=== PATIENT | female | born 1990 | race Caucasian/White ===

== ENCOUNTER 2017-05-04 14:59 | Emergency (ER) | payer MEDICAID ==
[~2017-05-04] VITALS: Ht 160 cm; Wt 64.9 kg
[~2017-05-04 14:59] MED LIST: AMOXIL500 MG PO; CEFDINIR300 MG PO; CEPHALEXIN500 MG PO; CIPRO 500MG TA500 MG PO; DARVOCET-N 1001 EACH PO; ERRIN0.35 MG PO; FAMILY PHARMAC325 MG PO; FLEXERIL10 MG PO; FOLIC ACID 1MG T1 MG PO; HYDROCODONE1 TABLET PO; IBU-8800 MG PO; IBUPROFEN200 MG PO; IRON TABLETS325 MG PO; KEFLEX 500MG.500 MG PO; LABETALOL 100M100 MG PO; LINZESS145 MCG PO; LORTAB 5/500 501 TAB PO; MACROBID 100MG100 MG PO; MEDROL 4MG. DOSE4 MG PO; MIRALAX17 GM/PACK PO; MOTRIN 400MG.400 MG PO; MOTRIN400 MG PO; Mobic7.5 MG PO; NAPROSYN 500MG500 MG PO; PERCOCET 5/3251 EACH PO; PHARMASSURE FO0.4 MG PO; PHENERGAN 25MG.25 M1 PO; PRENATAL PLUS1 TA1 PO; PRENATAL1 TA1 PO; PYRIDIUM 200MG200 MG PO; SULFAMETHOXAZOL1 TA6 PO; TRAMADOL PO; TYLENOL WITH CO1 TA1 PO; ULTRACET 325 MG1 TAB PO; ULTRAM 50 MG TA50 MG PO; VOLTAREN75 MG PO; ZANTAC 150150 MG PO; ZITHROMAX Z-PA250 M1 PO
[2017-05-04] MEDS ORDERED: CITALOPRAM HYDR10 MG PO (15:08)
[2017-05-04 15:22] LABS: URINE BLOOD NEGATIVE (NEG)
[2017-05-04 15:33] LABS: HEMOGLOBIN 11.6 g/dL (12.2-16.2); LYMPH # 2.2 K/mm3 (0.7-4.5); LYMPH % 15.8 % (10-50.0)
[2017-05-04 15:52] LABS: URINE BILIRUBIN - DIPSTICK 1+ (NEG)
[2017-05-04 15:55] LABS: URINE SQUAMOUS CELLS TNTC #/hpf (0-5)
[2017-05-04 15:59] LABS: BUN 9 mg/dL (7-18)
[2017-05-04 16:00] LABS: GFR (ESTIMATED) 148 ML/MIN (59-)
--- OUTSIDE RECORDS SUMMARY | 2017-05-04 16:15 | External Medical Summary Rpt ---
Author Author , Organization [employer] Address Unknown Phone Unavailable Purpose Continuity of Care Document - 04-11-2017 through 2016 Results Labs Lab Lab Date Result Refere Interp Status Commen Order Detail nces retati t Range on Blood group antibody screen [Presence] in Serum or Plasma (04-11-2017 14:16) Blood NEGATIV NEGATIV complet group 017 E E ed antibod 14:16 y screen [Presen ce] in Serum or Plasma Rh [Type] in Blood (04-11-2017 14:16) Rh POSITIV complet [Type] 017 E ed in 14:16 Blood ABO group [Type] in Blood (04-11-2017 14:16) ABO A complet group 017 ed [Type] 14:16 in Blood
--- OUTSIDE RECORDS SUMMARY | 2017-05-04 16:15 | External Medical Summary Rpt ---
Author Author [employer] Organization [employer] Address Unknown Phone Unavailable Purpose Continuity of Care Document - through 2016
--- OUTSIDE RECORDS SUMMARY | 2017-05-04 16:16 | External Medical Summary Rpt ---
Demographics Preferred Language Nigerian Marital Status Unknown Gnosticism Affiliation Unknown Race Unknown Ethnic Group Unknown Author Author , Organization [employer] Address Unknown Phone Unavailable Purpose Continuity of Care Document - through 2016 Immunization No patient found.
--- OUTSIDE RECORDS SUMMARY | 2017-05-04 16:16 | External Medical Summary Rpt ---
Author Author [employer], [employer] Organization [employer] Address Unknown Phone Unavailable Results CBC W Auto Differential panel in Blood Observa Value Referen Units Interpr Notes Date tion ce etation Range Basophils 0 - 0.2 K/MM3 Normal No May 04 informati 2016 3:20 [#/volume on in PM ] in source Blood by data Automated count Basophils 0.1 - 2.0 % Normal No May 04 / informati 2016 3:20 leukocyte on in PM s in source Blood by data Automated count Eosinophi 0.0 - 0.4 K/mm3 Normal No May 04 ls informati 2016 3:20 [#/volume on in PM ] in source Blood by data Automated count Eosinophi 0.1 - % Normal No May 04 ls/100 12.0 informati 2016 3:20 leukocyte on in PM s in source Blood by data Automated count Granulocy 1.8 - 7.8 K/mm3 High No May 04 beck informati 2016 3:20 [#/volume on in PM ] in source Blood by data Automated count Granulocy 37.0 - % Normal No May 04 beck/100 80.0 informati 2016 3:20 leukocyte on in PM s in source Blood by data Automated count Hematocri 37.0 - % Low No May 04 t [Volume 47.0 informati 2016 3:20 on in PM Fraction] source of Blood data Hemoglobi 12.2 - g/dL Low No May 04 n 16.2 informati 2016 3:20 [Mass/vol on in PM ume] in source Blood data Lymphocyt 0.7 - 4.5 K/mm3 Normal No May 04 es informati 2016 3:20 [#/volume on in PM ] in source Unspecifi data ed specimen by Automated count Lymphocyt 10 - 50.0 % Normal No May 04 es informati 2016 3:20 [#/volume on in PM ] in source Unspecifi data ed specimen by Automated count Erythrocy 27 - 31.2 pg High No May 04 te mean informati 2016 3:20 corpuscul on in PM ar source hemoglobi data n [Entitic mass] Erythrocy 31.8 - g/dl Normal No May 04 te mean 35.4 informati 2016 3:20 corpuscul on in PM ar source hemoglobi data n concentra tion [Mass/vol ume] by Automated count Erythrocy 82.2 - fl Normal No May 04 te mean 97.8 informati 2016 3:20 corpuscul on in PM ar volume source [Entitic data volume] by Automated count Monocytes 0.1 - 1.0 K/mm3 Normal No May 04 informati 2016 3:20 [#/volume on in PM ] in source Blood by data Automated count Monocytes 1.7 - 9.3 % Normal No May 04 /100 informati 2016 3:20 leukocyte on in PM s in source Blood by data Automated count Platelet 7.4 - fl Normal No May 04 mean 10.4 informati 2016 3:20 volume on in PM [Entitic source volume] data in Blood by Automated count Platelets 142 - 424 K/mm3 Normal No May 04 informati 2016 3:20 [#/volume on in PM ] in source Blood data Erythrocy 4.2 - 5.4 M/mm3 Low No May 04 beck informati 2016 3:20 [#/volume on in PM ] in source Amniotic data fluid Erythrocy 11.5 - % Normal No May 04 te 17.5 informati 2016 3:20 distribut on in PM ion width source [Entitic data volume] by Automated count Leukocyte 4.8 - K/MM3 High No May 04 s 10.8 informati 2016 3:20 [#/volume on in PM ] in source Blood data HBsAg Screen Observa Value Referen Units Interpr Notes Date tion ce etation Range Hepatit Negativ Negativ No No Perform Apr 11 is B e e informa informa ed at: 2017 virus tion in tion in CB - 2:16 PM surface source source [facility] Ag data data [Presen 6 ce] in 370 Serum Gutiérrez by [facility], [facility] [id number] 69Lab Directo r: Lev de la rosa PhD, Phone: [phone] Reagin Ab [Titer] in Serum by RPR Observa Value Referen Units Interpr Notes Date tion ce etation Range Reagin Ab NonRea<1: No No No Adam 12 [Titer] 1 informati informati informati 2016 2:16 in Serum on in on in on in PM by RPR source source source data data data Rubella virus IgG Ab [Units/volume] in Serum by Immunoassay Observa Value Referen Units Interpr Notes Date tion ce etation Range Rubella Immune index No Non-immun Mar 12 virus IgG >0.99 informati e 2016 2:16 Ab on in <0.90Equi PM [Units/vo source vocal lume] in data 0.90 - Serum by 0.99Immun Immunoass e ay >0.99 Blood group antibody screen [Presence] in Serum or Plasma Observa Value Referen Units Interpr Notes Date ti ce etation Range Blood NEGATIV NEGATIV No No No Apr 11 group E E informa informa informa 2016 antibod tion in tion in tion in 2:16 PM y source source source screen data data data [Presen ce] in Serum or Plasma Rh [Type] in Blood Observa Value Referen Units Interpr Notes Date ti ce etation Range Rh POSITIV No No No No Apr 11 [Type] E informa informa informa informa 2016 in tion in tion in tion in tion in 2:16 PM Blood source source source source data data data data ABO group [Type] in Blood Observa Value Referen Units Interpr Notes ce etation Range ABO A No No No No Apr 11 group informa informa informa informa 2016 [Type] tion in tion in tion in tion in 2:16 PM in source source source source Blood data data data data CBC W Auto Differential panel in Blood Observa Value Referen Units Interpr Notes Date tion ce etation Range Basophils 0 - 0.2 K/MM3 Normal No Apr 11 informati 2016 2:16 [#/volume on in PM ] in source Blood by data Automated count Basophils 0.1 - 2.0 % Normal No Mar 12 / informati 2016 2:16 leukocyte on in PM s in source Blood by data Automated count Eosinophi 0.0 - 0.4 K/mm3 Normal No Apr 11 ls informati 2016 2:16 [#/volume on in PM ] in source Blood by data Automated count Eosinophi 0.1 - % Normal No Apr 11 ls/100 12.0 informati 2017 2:16 leukocyte on in PM s in source Blood by data Automated count Granulocy 1.8 - 7.8 K/mm3 High No Mar 12 beck informati 2017 2:16 [#/volume on in PM ] in source Blood by data Automated count Granulocy 37.0 - % Normal No Mar 12 beck/100 80.0 informati 2016 2:16 leukocyte on in PM s in source Blood by data Automated count Hematocri 37.0 - % Normal No Apr 11 t [Volume 47.0 informati 2016 2:16 on in PM Fraction] source of Blood data Hemoglobi 12.2 - g/dL Normal No Mar 12 n 16.2 informati 2017 2:16 [Mass/vol on in PM ume] in source Blood data Lymphocyt 0.7 - 4.5 K/mm3 Normal No Apr 11 es informati 2016 2:16 [#/volume on in PM ] in source Unspecifi data ed specimen by Automated count Lymphocyt 10 - 50.0 % Normal No Apr 11 es informati 2016 2:16 [#/volume on in PM ] in source Unspecifi data ed specimen by Automated count Erythrocy 27 - 31.2 pg High No Mar 12 te mean informati 2017 2:16 corpuscul on in PM ar source hemoglobi data n [Entitic mass] Erythrocy 31.8 - g/dl Normal No Apr 11 te mean 35.4 informati 2016 2:16 corpuscul on in PM ar source hemoglobi data n concentra tion [Mass/vol ume] by Automated count Erythrocy 82.2 - fl Normal No Apr 11 te mean 97.8 informati 2016 2:16 corpuscul on in PM ar volume source [Entitic data volume] by Automated count Monocytes 0.1 - 1.0 K/mm3 Normal No Mar 12 informati 2017 2:16 [#/volume on in PM ] in source Blood by data Automated count Monocytes 1.7 - 9.3 % Normal No Adam 12 /100 informati 2017 2:16 leukocyte on in PM s in source Blood by data Automated count Platelet 7.4 - fl Low No Mar 12 mean 10.4 informati 2016 2:16 volume on in PM [Entitic source volume] data in Blood by Automated count Platelets 142 - 424 K/mm3 No No Mar 12 informati informati 2016 2:16 [#/volume on in on in PM ] in source source Blood data data Erythrocy 4.2 - 5.4 M/mm3 Low No Mar 12 beck informati 2017 2:16 [#/volume on in PM ] in source Amniotic data fluid Erythrocy 11.5 - % Normal No Mar 12 te 17.5 informati 2017 2:16 distribut on in PM ion width source [Entitic data volume] by Automated count Leukocyte 4.8 - K/MM3 High No Mar 12 s 10.8 informati 2017 2:16 [#/volume on in PM ] in source Blood data
--- OUTSIDE RECORDS SUMMARY | 2017-05-04 16:16 | External Medical Summary Rpt ---
Demographics Preferred Language Bulgarian Marital Status Unknown Roman Catholic Affiliation Unknown Race Unknown Ethnic Group Unknown Author Author , Organization [employer] Address Unknown Phone Unavailable Purpose Continuity of Care Document - through 2016 Immunization No patient found.
--- OUTSIDE RECORDS SUMMARY | 2017-05-04 16:16 | External Medical Summary Rpt ---
[...] 6 ce] in 370 Serum Gutiérrez by [facility], [facility] [id number] 69Lab Directo r: Lev de la rosa PhD, Phone: [phone] Reagin Ab [Titer] in Serum by [...]
--- NOTE | 2017-05-04 18:29 | Emergency Room Report ---
History of Present Illness Time Seen by [id number] Presenting Problem in Triage Pt arrived:Walked Presenting Problem:PAIN UNDER HER LEFT BREAST AND CENTER OF HER CHEST. STATES THE PAIN IS SHARP AND QUICK. SHE ALSO HAS PAIN IN HER LEFT SIDE AND BACK THAT IS CONSTANT. SHE IS 28 WEEKS AND WAS TREATED FOR A BLADDER INFECTION LAST WEEK. Onset of symptoms date/time:/ or onset unknown for:MEDICAL HX UNKNOWN Treatment Prior to Arrival: [employer] Provided by: Sepsis Risk Assessment: Temp: 98.7 B/P: 134/84 MAP: 81 Pulse: 111 Resp: 18 Recent fever? N Clinical Suspician of Infection? N Mental Status: 1 - Regular (Normal Baseline) Sepsis Risk:Possible Sepsis Risk Have you (or family members/close friends) recently traveled outside the [place]? N If Yes, where/when: Have you had exposure to infectious disease within the past month? TB? Other? Specify: Comment The patient states that she is here to be evaluated for chest pain. She is 28 weeks' gestation . She says that she called Dr. Jimenez today to tell him about contractions that she was having that she thought might be [place] contractions and also about chest pain that she has been having. She says that he told her to come to the emergency room first to have the chest pain checked and then go to labor and delivery to have the baby checked. She says that she has been having the chest pain for a couple of months. She says she gets it off and on and it only lasts a couple of seconds at a time. She says that it seems to be brought on by stress. She also notes that the area is tender to touch and hurts when she lays on that side. She says she also had the same chest pains with her last and has had them off and on ever since. She denies having any trouble breathing. No cough, sputum production or hemoptysis. No fever. No vomiting. She said she has had some knots around the herndon of both of her legs for her entire and has advised Dr. Jimenez of that. No other new leg pain. No history of thromboembolic disease. She says her contraction pains have now currently stopped. ALLERGIES Coded Allergies: No Known Drug Allergies (01/24/16) Home Medications Reported Medications Citalopram Hydrobromide (Citalopram HBr) 10 MG PO DAILY #30 Ferrous Sulfate (Iron Tablet) 325 MG PO DAILY FOLIC ACID (Folic Acid) 1 MG PO DAILY MULTIVIT-MIN W/FE-FA ( Multivitamin Tablet) 1 TAB PO DAILY History Medical History General CAD? No Angina: No IA: No Hypertension? Yes Hyperlipidemia? No CHF? No COPD? No Asthma? No Anemia? No Hernia? No Thyroid Problems? No Hypothyroidism? No CVA? No Seizures? No Diabetes? No End Stage Renal Disease? No UTI? No Stones? No GB Disease: No Nephritic Syndrome? No Asplenia? No Hepatitis? No Sickle Cell Disease? No Arthritis? No Cataracts? No Glaucoma? No MRSA? No TB? No Cancer? No More? 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 7-12 Months Ago Est.Due Date [id number] OB DR JIMENEZ Family History Family Hx Diabetes Yes CAD Yes Hypertension Yes Hyperlipidemia Yes Cancer Yes TB No Social History Smoking Hx Smoker: Current Every Day Smoker Tobacco: Yes Type Cigarettes Packs/day < 1 Pack Alcohol Alcohol: No Review of Systems All Other Systems Reviewed and Negative Constitutional denies fever Respiratory denies cough, denies shortness of breath Cardiovascular chest pain, denies edema Gastrointestinal abdominal pain Physical Exam Vital Signs Vital Signs Date Time Temp Pulse Resp B/P Pulse O2 O2 Flow FiO2 Ox Delivery Rate 05/04 1812 98.7 111 18 134/84 97 05/04 1711 78 20 123/59 98 05/04 1500 98.6 92 20 125/60 99 General Appearance normal appearance, WD/WN Eye Exam - bilateral eye normal exam, bilateral eye PERRL, bilateral eye EOMI Ear, Nose, Throat hearing grossly normal, normal ENT inspection Neck normal inspection, non-tender, supple, full range of motion Respiratory Status Yes: trachea midline, chest symmetrical, tender on palpation. No: respiratory distress. Lung Sounds bilateral: normal breath sounds, lungs clear. Cardiovascular normal exam, regular rate/rhythm, no peripheral edema, no gallop, no JVD, no murmur, no rub, normal peripheral pulses Peripheral Pulses Pulses normal Yes Gastrointestinal normal bowel sounds, normal exam, non tender, soft, gravid uterus which is nontender Back normal inspection, no CVA tenderness, no vertebral tenderness Extremities non-tender, normal range of motion, normal inspection Neurologic alert, robotype operator II-XII nml as tested, normal exam, oriented x 3 Mental status normal mood/affect Skin intact, normal color, warm/dry Comments Reproducible LEFT chest wall tenderness in the area of described pain. Medical Decision Making LABS/Meds/Orders Pt receiving controlled substance in ED? No Results/Orders Laboratory Tests 05/04/17 1520: Sodium 138, Potassium 3.8, Chloride 103, Carbon Dioxide 24, BUN 9, Creatinine 0.5 L, Estimated Creat Clear 173, Estimated GFR (MDRD) 148, Glucose 81, Calcium 8.7, Total Bilirubin 0.2, AST 11 L, ALT 12, Alkaline Phosphatase 57, Creatine Kinase 34, CK-MB (CK-2) Rel Index 1.5, CK and CKMB Interp < 0.5, Troponin I < 0.02, Total Protein 6.9, Albumin 3.0 L, Globulin 3.9 H, Albumin/Globulin Ratio 0.8 L, WBC 14.2 H, RBC 3.57 L, Hgb 11.6 L, Hct 33.8 L, MCV 94.6, RDW 12.3, Plt Count 295, MPV 7.6, Gran % 79.3, Gran # 11.3 H, Lymphocytes % 15.8, Monocytes % 3.3, Eosinophils % 1.4, Basophils % 0.2, Lymphocytes # 2.2, Monocytes # 0.5, Eosinophils # 0.2, Basophils # 0.0, PUBS MCHC 34.3, MCH 32.4 H 05/04/17 1510: Urine Color YELLOW, Urine Appearance SL CLOUDY, Urine pH 6.0, Ur Specific [place] 1.025, Urine Protein 1+ H, Urine Ketones TRACE H, Urine Blood NEGATIVE , Urine Nitrate POSITIVE H, Urine Bilirubin 1+ H, Urine Urobilinogen 1.0, Ur Leukocyte Esterase TRACE H, Urine RBC 5-10, Urine WBC 5-10, Ur Squamous Epith Cells TNTC, Urine Bacteria 3+, Urine Glucose NEGATIVE Current Medication Orders Sig/Magalie Start time Last Medication Dose Route Stop Time Status Admin Sodium Chloride 10 ML PRN PRN 05/04 151 AC IV 05/05 151 Orders Procedure Date/time Status ELECTROCARDIOGRAM REQUEST 05/04 1516 Active IV SALINE LOCK 05/04 1516 Active GEN NSG/PT REQ (NOT FOR MEDS!) 05/04 151 Active URINALYSIS/COMPLETE 05/04 151 Complete CBC WITH AUTO DIFF 05/04 151 Complete CARDIAC ENZYMES 05/04 151 Complete CHEM 12 PROFILE 05/04 151 Complete CULTURE, URINE 05/04 1510 Active 12 LEAD EKG-MARTY (INITIAL) 05/04 UNK Active CM/EKG CM/EKG Comments EKG interpreted by Dougie Wynne MD: Rhythm: sinus Rate: 84 [place]: normal Ectopy: none Conduction: normal ST Segment Changes: none T Wave Changes: none Q Waves: none No evidence of acute ischemia or injury OH interval 108 ms Progress - The patient has very brief fleeting chest pains for months. Workup is negative here. Her chest pain is not at all suggestive of pulmonary embolism and I do not feel she needs workup for that. I feel she can be discharged for obstetrical evaluation per Dr. De Jesus's instructions. Departure Departure Disposition DC Home or Self Care(routine) Clinical Impression Primary Impression: Atypical chest pain Condition STABLE Referrals Zayra BUI,Yo Mcknight (Family) Patient Instructions DI for Atypical Chest Pain Additional Instructions Go to labor and delivery now for evaluation of your as per Dr. Jimenez' s instructions. Additional instructions for CHEST PAIN: See your physician as soon as possible for further evaluation. Return immediately if worsening chest pain, vomiting, shortness of breath, fever, coughing of blood. ED Critical Care Critical Care No at 1844
--- NOTE | 2017-05-04 18:29 | Emergency Room Report ---
History of Present Illness Time Seen by [id number] Presenting Problem in Triage Pt arrived:Walked Presenting Problem:PAIN UNDER HER LEFT BREAST AND CENTER OF HER CHEST. STATES THE PAIN IS SHARP AND QUICK. SHE ALSO HAS PAIN IN HER LEFT SIDE AND BACK THAT IS CONSTANT. SHE IS 28 WEEKS AND WAS TREATED FOR A BLADDER INFECTION LAST WEEK. 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 N Clinical Suspician of Infection? N Mental Status: 1 - Regular (Normal Baseline) Sepsis Risk:Possible Sepsis Risk Have you (or family members/close friends) recently traveled outside the [place]? N If Yes, where/when: Have you had exposure to infectious disease within the past month? TB? Other? Specify: Comment The patient states that she is here to be evaluated for chest pain. She is 28 weeks' gestation . She says that she called Dr. Jimenez today to tell him about contractions that she was having that she thought might be [place] contractions and also about chest pain that she has been having. She says that he told her to come to the emergency room first to have the chest pain checked and then go to labor and delivery to have the baby checked. She says that she has been having the chest pain for a couple of months. She says she gets it off and on and it only lasts a couple of seconds at a time. She says that it seems to be brought on by stress. She also notes that the area is tender to touch and hurts when she lays on that side. She says she also had the same chest pains with her last and has had them off and on ever since. She denies having any trouble breathing. No cough, sputum production or hemoptysis. No fever. No vomiting. She said she has had some knots around the herndon of both of her legs for her entire and has advised Dr. Jimenez of that. No other new leg pain. No history of thromboembolic disease. She says her contraction pains have now currently stopped. ALLERGIES Coded Allergies: No Known Drug Allergies (01/24/16) Home Medications Reported Medications Citalopram Hydrobromide (Citalopram HBr) 10 MG PO DAILY #30 Ferrous Sulfate (Iron Tablet) 325 MG PO DAILY FOLIC ACID (Folic Acid) 1 MG PO DAILY MULTIVIT-MIN W/FE-FA ( Multivitamin Tablet) 1 TAB PO DAILY History Medical History General CAD? No Angina: No [place]: No Hypertension? Yes Hyperlipidemia? No CHF? No COPD? No Asthma? No Anemia? No Hernia? No Thyroid Problems? No Hypothyroidism? No CVA? No Seizures? No Diabetes? No End Stage Renal Disease? No UTI? No Stones? No GB Disease: No Nephritic Syndrome? No Asplenia? No Hepatitis? No Sickle Cell Disease? No Arthritis? No Cataracts? No Glaucoma? No MRSA? No TB? No Cancer? No More? 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 7-12 Months Ago Est.Due Date [id number] OB DR JIMENEZ Family History Family Hx Diabetes Yes CAD Yes Hypertension Yes Hyperlipidemia Yes Cancer Yes TB No Social History Smoking Hx Smoker: Current Every Day Smoker Tobacco: Yes Type Cigarettes Packs/day < 1 Pack Alcohol Alcohol: No Review of Systems All Other Systems Reviewed and Negative Constitutional denies fever Respiratory denies cough, denies shortness of breath Cardiovascular chest pain, denies edema Gastrointestinal abdominal pain Physical Exam Vital Signs Vital Signs Date Time Temp Pulse Resp B/P Pulse O2 O2 Flow FiO2 Ox Delivery Rate 05/04 1812 98.7 111 18 134/84 97 05/04 1711 78 20 123/59 98 05/04 1500 98.6 92 20 125/60 99 General Appearance normal appearance, WD/WN Eye Exam - bilateral eye normal exam, bilateral eye PERRL, bilateral eye EOMI Ear, Nose, Throat hearing grossly normal, normal ENT inspection Neck normal inspection, non-tender, supple, full range of motion Respiratory Status Yes: trachea midline, chest symmetrical, tender on palpation. No: respiratory distress. Lung Sounds bilateral: normal breath sounds, lungs clear. 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 Medical Decision Making LABS/Meds/Orders Pt receiving controlled substance in ED? No Results/Orders Laboratory Tests 05/04/17 1520: Sodium 138, Potassium 3.8, Chloride 103, Carbon Dioxide 24, BUN 9, Creatinine 0.5 L, Estimated Creat Clear 173, Estimated GFR (MDRD) 148, Glucose 81, Calcium 8.7, Total Bilirubin 0.2, AST 11 L, ALT 12, Alkaline Phosphatase 57, Creatine Kinase 34, CK-MB (CK-2) Rel Index 1.5, CK and CKMB Interp < 0.5, Troponin I < 0.02, Total Protein 6.9, Albumin 3.0 L, Globulin 3.9 H, Albumin/Globulin Ratio 0.8 L, WBC 14.2 H, RBC 3.57 L, Hgb 11.6 L, Hct 33.8 L, MCV 94.6, RDW 12.3, Plt Count 295, MPV 7.6, Gran % 79.3, Gran # 11.3 H, Lymphocytes % 15.8, Monocytes % 3.3, Eosinophils % 1.4, Basophils % 0.2, Lymphocytes # 2.2, Monocytes # 0.5, Eosinophils # 0.2, Basophils # 0.0, PUBS MCHC 34.3, MCH 32.4 H 05/04/17 1510: Urine Color YELLOW, Urine Appearance SL CLOUDY, Urine pH 6.0, Ur Specific [place] 1.025, Urine Protein 1+ H, Urine Ketones TRACE H, Urine Blood NEGATIVE , Urine Nitrate POSITIVE H, Urine Bilirubin 1+ H, Urine Urobilinogen 1.0, Ur Leukocyte Esterase TRACE H, Urine RBC 5-10, Urine WBC 5-10, Ur Squamous Epith Cells TNTC, Urine Bacteria 3+, Urine Glucose NEGATIVE Current Medication Orders Sig/Magalie Start time Last Medication Dose Route Stop Time Status Admin Sodium Chloride 10 ML PRN PRN 05/04 151 AC IV 05/05 151 Orders Procedure Date/time Status ELECTROCARDIOGRAM REQUEST 05/04 1516 Active IV SALINE LOCK 05/04 1516 Active GEN NSG/PT REQ (NOT FOR MEDS!) 05/04 151 Active URINALYSIS/COMPLETE 05/04 151 Complete CBC WITH AUTO DIFF 05/04 151 Complete CARDIAC ENZYMES 05/04 151 Complete CHEM 12 PROFILE 05/04 151 Complete CULTURE, URINE 05/04 1510 Active 12 LEAD EKG-MARTY (INITIAL) 05/04 UNK Active CM/EKG CM/EKG Comments EKG interpreted by Dougie Wynne MD: Rhythm: sinus Rate: 84 [place]: normal Ectopy: none Conduction: normal ST Segment Changes: none T Wave Changes: none Q Waves: none No evidence of acute ischemia or injury MS interval 108 ms Progress - The patient has very brief fleeting chest pains for months. Workup is negative here. Her chest pain is not at all suggestive of pulmonary embolism and I do not feel she needs workup for that. I feel she can be discharged for obstetrical evaluation per Dr. De Jesus's instructions. Departure Departure Disposition DC Home or Self Care(routine) Clinical Impression Primary Impression: Atypical chest pain Condition STABLE Referrals Zayra BUI,Yo Mcknight (Family) Patient Instructions DI for Atypical Chest Pain Additional Instructions Go to labor and delivery now for evaluation of your as per Dr. Jimenez' s instructions. Additional instructions for CHEST PAIN: See your physician as soon as possible for further evaluation. Return immediately if worsening chest pain, vomiting, shortness of breath, fever, coughing of blood. ED Critical Care Critical Care No at 1844
[2017-05-04 18:55] VITALS: BP 117/63
== END 2017-05-04 18:56 | disposition home or self-care (01) ==
LOC: ER 14:59
PROVIDERS: Emergency Medicine
DX: R07.89 Other chest pain (principal); I10 Essential (primary) hypertension; Z72.0 Tobacco use; Z33.1 Pregnant state, incidental

== ENCOUNTER 2017-06-18 17:46 | Outpatient (CLI) | payer MEDICAID ==
[~2017-06-18] VITALS: Ht 157.5 cm; Wt 77.6 kg
[~2017-06-18 17:46] MED LIST changes: +CITALOPRAM HYDR10 MG PO
[2017-06-18 17:54] VITALS: BP 81/63
[2017-06-18 19:06] LABS: URINE BILIRUBIN - DIPSTICK NEGATIVE (NEG); URINE BLOOD NEGATIVE (NEG)
[2017-06-18 19:13] LABS: URINE RENAL CELLS OCC #/HPF
[2017-06-18 19:29] LABS: AMPHETAMINES/METAMPHETAMINES NEGATIVE ng/mL (<1000)
== END 2017-06-18 19:50 | disposition home or self-care (01) ==
LOC: OBOUT 17:46 → OB 17:46 → OBOUT 19:50
PROVIDERS: Obstetrics & Gynecology
DX: O26.893 Other specified pregnancy related conditions, third trimester (principal); Z3A.34 34 weeks gestation of pregnancy

== ENCOUNTER → 2017-06-23 | Outpatient (CLI) | payer MEDICAID ==
--- NOTE | 2017-06-29 10:42 | RADIOLOGY REPORT PS360 ---
US PREG FOLLOWUP SINGLE FETUS, US BIOPHYSICAL PROFILE, SD RATIO UMBILICAL ARTERY: Indication: Large for gestational age GROWTH ORDERING PHYSICIAN: Nicola Urrutia MD PATIENT AGE: 26 years FINDINGS: Single live fetus is present in the cephalic presentation. heart and body motion is noted. The following parameters are obtained: Average ultrasound age is 37 weeks 3 days. Estimated due date by ultrasound is 07/11/2017. Estimated weight is 3037 g BPD: 37 weeks 1 day OFD: OFD HC: 39 weeks 2 days AC: 36 weeks 5 days FL: 36 weeks 1 day heart rate: 124 bpm. HC/AC: 1.04 Cephalic index: 74% FL/BPD: 77% FL/AC: 22% Amniotic fluid index: 16 cm Qualitative AFV: 2 breathing movements: 2 Gross body movements: 2 Tone: 2 Biophysical profile score: 8/8 Doppler evaluation of the umbilical artery: SD ratio: 2.3 Resistive index: 0.56 There is mild prominence of the stomach of the fetus. This is of questionable clinical significance. Placenta: Posterior. No obvious previa Cervix: Appears closed and measures 4 cm IMPRESSION: Live intrauterine gestation in cephalic presentation with average ultrasound age of 37 weeks 3 days. Biophysical profile 8 of 8 with unremarkable Doppler evaluation of the umbilical artery. Mild prominence of the stomach of the fetus of questionable clinical significance.
== END ==
LOC: RAD 13:00
DX: O36.5131 Maternal care for known or suspected placental insufficiency, third trimester, fetus 1 (principal)

== ENCOUNTER → 2017-06-29 | Outpatient (CLI) | payer MEDICAID | LOC: LAB 17:45 | DX: Z34.80 Encounter for supervision of other normal pregnancy, unspecified trimester (principal) ==

== ENCOUNTER → 2017-06-30 | Day surgery (SDC) | payer MEDICAID ==
--- NOTE | 2017-06-30 10:55 | Operative Note ---
Surgeon/Diagnoses Surgeon/Digital Forensics Examiner(s) Date of procedure: 06/30/17 Surgeon: MD Gerhard Yo Diagnoses Pre-op diagnosis: Lymphadenopathy Right shoulder lesion Post-op diagnosis Same as preoperative diagnoses, with the addition of the following: Likely lipoma Procedure Procedure Procedure: Excision of RIGHT shoulder nodule (2cm) Indications: LILLIAM SAUCEDO is a 26 year-old Female with a history of multiple subcutaneous nodules with concern for lymphadenopathy. She is 36-2/7 weeks gestation and was referred for excisional biopsy in order to obtain a pathologic diagnosis. Findings: 2 cm subcutaneous nodule with findings consistent with lipoma Procedure Description: After informed consent was obtained, the patient was taken to the procedure room. The RIGHT superior margin of the shoulder was prepped and draped in a sterile fashion. After infiltration with local anesthetic an incision was made overlying the palpable nodule. A subcutaneous nodule with consistency in visual appearance consistent with lipoma was elevated and excised in toto. A small portion was placed in RPMI solution and the remainder was placed in formalin. Skin was reapproximated with interrupted 4-0 nylon and a dressing was applied. The patient was transferred to recovery in stable condition. EBL (ml): 5 Anesthesia: 1 percent lidocaine with epinephrine Complications: No immediate Specimens: RIGHT shoulder nodule Disposition Disposition: Stable to recovery from where she will be discharged home. She will follow-up next week. at 1058
[2017-06-30 11:44] VITALS: BP 128/72
== END ==
LOC: SDC 09:57
PROVIDERS: Surgery
PROC: 0HBBXZZ Excision of Right Upper Arm Skin, External Approach (ICD-10-PCS; principal; 2017-06-30 11:00)
DX: D17.1 Benign lipomatous neoplasm of skin and subcutaneous tissue of trunk (principal); R20.8 Other disturbances of skin sensation

== ENCOUNTER 2017-07-03 21:26 | Outpatient (CLI) | payer MEDICAID ==
[~2017-07-03] VITALS: Ht 160 cm; Wt 78.5 kg
[2017-07-03 21:51] VITALS: BP 136/76
[2017-07-03 22:09] LABS: URINE BILIRUBIN - DIPSTICK NEGATIVE (NEG); URINE BLOOD NEGATIVE (NEG)
[2017-07-03 22:23] LABS: AMPHETAMINES/METAMPHETAMINES NEGATIVE ng/mL (<1000)
== END 2017-07-03 22:35 | disposition home or self-care (01) ==
LOC: OBOUT 21:26 → OB 21:26 → OBOUT 22:35
PROVIDERS: Obstetrics & Gynecology
DX: O36.8130 Decreased fetal movements, third trimester, not applicable or unspecified (principal); Z3A.36 36 weeks gestation of pregnancy

== ENCOUNTER 2017-07-18 21:42 | Outpatient (CLI) | payer MEDICAID ==
[~2017-07-18] VITALS: Ht 157.5 cm; Wt 78.0 kg
[2017-07-18 22:26] LABS: URINE BILIRUBIN - DIPSTICK NEGATIVE (NEG); URINE BLOOD NEGATIVE (NEG)
[2017-07-18 22:37] VITALS: BP 118/58
[2017-07-18 22:49] LABS: AMPHETAMINES/METAMPHETAMINES NEGATIVE ng/mL (<1000)
== END 2017-07-19 00:40 | disposition home or self-care (01) ==
LOC: OB 21:42 → OBOUT 21:42 → OB 21:43 → OBOUT 07-19 00:40
PROVIDERS: Nurse Practitioner Obstetrics & Gynecology
DX: O60.03 Preterm labor without delivery, third trimester (principal); Z3A.38 38 weeks gestation of pregnancy

== ENCOUNTER 2017-07-20 01:09 | Inpatient (IN) | payer MEDICAID ==
[~2017-07-20] VITALS: Ht 160 cm; Wt 78.0 kg
[2017-07-20 06:02] VITALS: BP 129/66
[2017-07-20 06:37] LABS: HEMOGLOBIN 10.9 g/dL (12.2-16.2); LYMPH # 2.9 K/mm3 (0.7-4.5)
[2017-07-20 07:06] LABS: ABO BLOOD TYPE A; RH BLOOD TYPE POSITIVE
[2017-07-20 08:08] LABS: URINE BILIRUBIN - DIPSTICK NEGATIVE (NEG); URINE BLOOD NEGATIVE (NEG)
[2017-07-20 08:18] LABS: AMPHETAMINES/METAMPHETAMINES NEGATIVE ng/mL (<1000)
--- NOTE | 2017-07-20 08:22 | Operative Note ---
Procedure/Operative Record Procedure Date of procedure: 07/20/17 Pre-Op Dx: Term , previous section Post-Op Dx: Term , previous section Procedure performed: Repeat lower segment transverse section Surgeon: Dr. Nicola Urrutia Bakery Decorator(s): Alena Burks Anesthesia: Kam Jack EBL (ml): 600 Clinical note: She is a 26-year-old 4 para 3 who was 39 weeks gestational age. She's had 3 previous sections and as result of that was offered repeat lower segment transverse section at term. The risks and benefits of surgery were discussed with the patient prior surgery. Operative findings: She delivered a live-born female child at 7:51 AM on the morning of July. The baby had Apgars of 8 at 1 minute and 9 at 5 minutes. Ovaries and tubes appeared normal. Operative note: She was taken to the operating room where spinal anesthesia was found be adequate. She was prepped and draped in normal sterile fashion in the supine position with a leftward tilt. A Ward catheter was in the bladder. A Pfannenstiel skin incision was made with knife then carried through to the underlying layer of fascia with cautery. The fascia was opened in the midline with cautery and extended laterally using Bravo scissors. [place] clamps were applied to the superior aspect of the fascial incision which was tented up and the underlying rectus muscles dissected off using cautery. The [place] clamps were then applied to the inferior aspect of the fascial incision which in a similar fashion was tented up and the underlying rectus muscles dissected off using cautery. The rectus muscles were then in the midline, the peritoneum identified, and entered sharply with Metzenbaum scissors. This incision was then extended superiorly and inferiorly with cautery. We had good visualization of the bladder inferiorly. The bladder peritoneum was then opened in the midline and extended laterally using Metzenbaum scissors. A bladder flap was created digitally. The lower blade of the Joana was inserted so as to push the bladder out of the way. Transverse incision was made through the uterine muscle to the amnion. This incision was then extended laterally using fingers traction. The amnion was entered sharply with knife. The 's head was then delivered atraumatically. This was followed by the anterior shoulder and the rest of the infant's body atraumatically. The oropharynx and nasopharynx were bulb suctioned. The was then handed off to Dr. Chery who assigned Apgars of 8 at 1 minute and 9 at 5 minutes. We then obtained cord blood as well as cord pH. Using gentle traction on the cord and countertraction on the fundus I was able to easily deliver the placenta intact. It had a normal three-vessel cord. The uterus was then cleared of clots and debris. I LEFT the uterus and the abdominal cavity. The uterine incision was then closed using running 0 Vicryl suture in a locked fashion. A second layer of the same suture was used to imbricate the first layer. The bladder peritoneum was then closed using running 2-0 Vicryl suture in a locked fashion. There is a small amount of bleeding in the midline and a single [id number] suture was used to obtain excellent hemostasis here. The gutters and cul-de-sac were then cleared of clots and debris. Once again hemostasis was assured. I placed a small piece of Surgicel across the uterine incision. The peritoneum was grasped with Grace clamps and closed using running 2-0 Vicryl suture. The rectus muscles were then reapproximated using running 0 Vicryl suture. The fascia was closed using running #1 Vicryl suture. The subcutaneous tissues were then irrigated with warm water followed by closure Carlee's fascia using running 2-0 Monocryl suture. The skin was closed with gerardo. The skin was then doubly cleansed with Hibiclens. Sterile dressings were applied. She tolerated the procedure well and was taken to the recovery room in excellent condition. All sponges minute and needle counts were correct. Estimate a blood loss was approximately 600 mL. Conplications: None Specimens: Products of conception at 0835
--- NOTE | 2017-07-20 08:28 | Anesthesia Record ---
Anesthesia Record Part I Total IV fluids: 800 EBL (ml): 600 Urine Output: 300 B/P: 122/58 % SaO2: 97 Pulse: 113 Resps: 12 Temp: 98 Patient is: Awake, Stable Stable to PACU at: 0825 at 0898
--- NOTE | 2017-07-20 08:28 | Anesthesia Record ---
Anesthesia Record Part II Discharge time: 854 Destination: OB PACU nurse assessment review? Yes Patient is: Awake, Stable Anesthesia complications? No at 2458
[2017-07-20 08:30] LABS: URINE SQUAMOUS CELLS OCC #/hpf (0-5)
[2017-07-20 09:15] VITALS: BP 127/72
[2017-07-20 11:57] LABS: NEUTROPHILS 70 % (42-76)
[2017-07-20 20:13] VITALS: BP 115/70
[2017-07-21 07:17] LABS: HEMOGLOBIN 9.9 g/dL (12.2-16.2)
[2017-07-21 07:52] VITALS: BP 116/63
--- NOTE | 2017-07-21 08:36 | ACUTE CARE PROGRESS NOTE (QUA) ---
Progress Notes Subjective Date 07/21/17 Time 0835 Note She continues to do well. She is eating and drinking and ambulating. She is bottlefeeding. Her lochia is normal. Patient/family reports: feeling better, no complaints Objective Findings Last VS-Temp:98.8 B/P:115/70 Pulse:88 Resp:16 SaO2:99 ROOM AIR Last weight lbs:172 oz:0 K.019 Method:Floor Scales Laboratory Tests 07/21/17 0610: Hgb 9.9 L, Hct 28.9 L Exam General appearance: normal appearance, alert, awake, no acute distress Reviewed: vital signs, lab results Assessment/Plan Problem List 1. section Status: Acute Patient condition Improving, Stable Plan: continue current care This inpt stay is expected to cross 2 MNs from start of care Yes Comments: She is doing very well. We will plan to send her home in 48 hours. at 0836
[2017-07-21 20:30] VITALS: BP 116/58
--- NOTE | 2017-07-22 10:11 | ACUTE CARE PROGRESS NOTE (QUA) ---
Progress Notes Subjective Date 07/22/17 Time 1010 Note She is doing well this morning. She is eating and drinking and ambulating. She is bottlefeeding. Her lochia is normal. Patient/family reports: feeling better, no complaints Objective Findings Last VS-Temp:98.3 B/P:116/58 Pulse:80 Resp:18 SaO2:99 ROOM AIR Last weight lbs:172 oz:0 K.019 Method:Floor Scales Exam General appearance: normal appearance, alert, awake, no acute distress Reviewed: vital signs, lab results Assessment/Plan Problem List 1. section Status: Acute Patient condition Improving, Stable Plan: continue current care This inpt stay is expected to cross 2 MNs from start of care Yes Comments: She is doing very well today. We'll plan to send her home tomorrow. at 1011
[2017-07-23 00:13] VITALS: BP 128/72
[2017-07-23 08:30] VITALS: BP 128/64
[2017-07-23] MEDS ORDERED: PERCOCET 5/3251 EACH PO (11:02)
[2017-07-23] MEDS ORDERED: MOTRIN 400MG.400 MG PO (11:03)
--- NOTE | 2017-07-23 11:11 | ACUTE CARE PROGRESS NOTE (QUA) ---
Progress Notes Subjective Date 07/23/17 Time 1110 Note She is doing well this morning. And we will plan to send her home today. Her baby experienced seizures this morning and as a result of that was transferred to [facility]. She says that her has a family history of seizures. Patient/family reports: feeling better, no complaints Objective Findings Last VS-Temp:97.5 B/P:128/64 Pulse:83 Resp:16 SaO2:99 ROOM AIR Last weight lbs:172 oz:0 K.019 Method:Floor Scales Exam General appearance: normal appearance, alert, awake, no acute distress Reviewed: vital signs, lab results Assessment/Plan Problem List 1. section Status: Acute Patient condition Improving, Stable Plan: continue current care, initiate discharge plan This inpt stay is expected to cross 2 MNs from start of care Yes Comments: She is doing well this morning. We'll plan to send her home today. at 1111
--- NOTE | 2017-07-23 11:14 | Discharge Summary ---
Discharge Summary Admission date: 07/20/17 Discharge date: 07/23/17 Discharge diagnoses: Term , previous section, repeat lower segment transverse transection. Clinical note: She is a 26-year-old 4 now para 4 who was 39 and 1 weeks gestational age. She's had previous sections is as result of that was offered repeat lower segment transverse section at term. Course in hospital: On July 20, 2017 she underwent a repeat lower segment transverse section. She delivered a live-born female child at 7:51 AM on the morning of July 20, 2017. The baby weighed 8 lbs. 3 oz. and was 20 inches long. She had Apgars of 8 at 1 minute and 9 at 5 minutes. She has done well and has remained afebrile throughout her hospitalization. She is eating and drinking and ambulating. She is bottlefeeding. Her lochia is normal. She has a positive blood, she is rubella immune and was group B streptococcus positive.Laboratory Tests 07/20/17 0555: Sodium 134, Potassium 3.7, Chloride 104, Carbon Dioxide 21, BUN 7, Creatinine 0.7, Estimated Creat Clear 149, Estimated GFR (MDRD) 100, Glucose 85, Calcium 9.7, WBC 17.2, RBC 3.47, MCV 93.2, RDW 12.3, Plt Count 459, MPV 7.9, Gran % 75.8 , Gran # 13.0, Total Counted 100, Lymphocytes % 17.0, Monocytes % 5.0, Eosinophils % 2.0, Basophils % 0.3, Neutrophils 70, Band Neutrophils 1, Lymphocytes (Manual) 17, Lymphocytes # 2.9, Monocytes (Manual) 10, Monocytes # 0.9, Eosinophils # 0.4, Eosinophils # (Manual) 2, Basophils # 0.1, Platelet Estimate MARKED INCREASE, PUBS MCHC 33.8, Antibody Screen NEGATIVE, Miscellaneous Test POSITIVE 07/20/17 0555: MCH 31.5 07/20/17 0625: Opiates Screen NEGATIVE, Urine Methadone Screen NEGATIVE, Barbiturates NEGATIVE, Phencyclidine Screen NEGATIVE, Amphetamines Screen NEGATIVE, Benzodiazepines Screen NEGATIVE, Cocaine Screen NEGATIVE, Marijuana (THC) Screen NEGATIVE, Urine Color YELLOW, Urine Appearance CLEAR, Urine pH 6.0, Ur Specific [place] 1.025, Urine Protein NEGATIVE, Urine Ketones NEGATIVE, Urine Blood NEGATIVE, Urine Nitrate NEGATIVE, Urine Bilirubin NEGATIVE, Urine Urobilinogen 0.2, Ur Leukocyte Esterase NEGATIVE, Urine WBC OCC, Ur Squamous Epith Cells OCC, Urine Bacteria 2+ , Urine Glucose NEGATIVE 07/20/17 0759: Cord Blood pH 7.32 07/21/17 0610: Hgb 9.9, Hct 28.9 Plans for ongoing care: She is discharged home to follow-up with me in approximately 2 weeks' time. Discharge medications She will continue with her vitamins and iron. She was given up her prescription for Percocet 5/325, 30 tablets as well as Motrin 400, 40 tablets. DC/follow-up instructions She was given the usual instructions with respect to limiting her activity, driving and sexual activity. She was given instructions with respect to wound care. Condition at discharge Stable and improved at 1113
== END 2017-07-23 11:10 | disposition home or self-care (01) | DRG 766 ==
LOC: OB 01:09 → EDSTATUS 07:30 → OB 07:30 → SDC 07:30 → OB 07-23 11:10
PROVIDERS: Nurse Practitioner Obstetrics & Gynecology
PROC: 10D00Z1 Extraction of Products of Conception, Low, Open Approach (ICD-10-PCS; principal; 2017-07-20 07:30)
DX: O65.5 Obstructed labor due to abnormality of maternal pelvic organs (principal); N85.8 Other specified noninflammatory disorders of uterus; O34.211 Maternal care for low transverse scar from previous cesarean delivery; Z3A.39 39 weeks gestation of pregnancy; Z37.0 Single live birth

== ENCOUNTER 2017-07-24 08:16 | Inpatient (IN) | payer MEDICAID ==
[2017-07-24] VITALS (16 sets, daily range): BP systolic 111–174; BP diastolic 61–110
[~2017-07-24] VITALS: Ht 160 cm; Wt 78.1 kg
[2017-07-24 08:52] LABS: HEMOGLOBIN 10.4 g/dL (12.2-16.2); LYMPH # 1.8 K/mm3 (0.7-4.5); LYMPH % 12.7 % (10-50.0)
--- NOTE | 2017-07-24 08:55 | Emergency Room Report ---
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 N Clinical Suspician of Infection? N Mental Status: 1 - Regular (Normal Baseline) Sepsis Risk:Low Sepsis Risk Have you (or family members/close friends) recently traveled outside the [place]? N If Yes, where/when: Have you had exposure to infectious disease within the past month? TB? Other? Specify: 26 years old white female 4 days after a 39 weeks full-term uncomplicated . she was delivered by due to prior . The baby is in the NICU because of seizures. She had a history of using cocaine earlier in the per her account. She was discharged yesterday at 10 AM, she reports started vomiting at 6 PM 3 times. She is unsure of the first vomiting containing blood. At 3 AM she started passing blood clots time 5. She arrived to the ED for evaluation and found to have hypertension of 160/100 mmhg. she denies having headache or neck stiffness. She has mild upper abdominal pain without diarrhea. He has no hematuria or dysuria. She has no flank pain. Source patient, RN notes reviewed, old records Exam Limitations no limitations ALLERGIES Coded Allergies: No Known Drug Allergies (07/24/17) Home Medications Active Scripts Oxycodone 5MG/[id number] (Oxycodone-Acetaminophen 5-325) 1-2 TAB PO Q4HP PRN MODERATE TO SEVERE PAIN #30 TAB Prov: 07/23/17 Ibuprofen (MOTRIN 400MG) 400 MG PO Q8HP PRN MILD PAIN, FEVER OR HEADACHE #40 TAB Prov: 07/23/17 Reported Medications Citalopram Hydrobromide (Citalopram HBr) 10 MG PO DAILY #30 FOLIC ACID (Folic Acid) 1 MG PO DAILY MULTIVIT-MIN W/FE-FA ( Multivitamin Tablet) 1 TAB PO DAILY History Medical History General CAD? No Angina: No ME: No Hypertension? Yes Hyperlipidemia? No CHF? No COPD? No Asthma? No Anemia? Yes GERD? No Gastric ulcers? No GI Bleed? No Hernia? No Thyroid Problems? No Hypothyroidism? No CVA? No Seizures? No Diabetes? No End Stage Renal Disease? No UTI? No Stones? No GB Disease: No Nephritic Syndrome? No Asplenia? No Hepatitis? No Sickle Cell Disease? No Arthritis? No Cataracts? No Glaucoma? No MRSA? No TB? No Cancer? No More? 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 Respiratory no symptoms reported Cardiovascular no symptoms reported Gastrointestinal see HPI, abdominal pain, vomiting Genitourinary see HPI ( vaginal bleeding). Musculoskeletal no symptoms reported Skin no symptoms reported Psychiatric/Neurological no symptoms reported Physical Exam Vital Signs Vital Signs Date Time Temp Pulse Resp B/P Pulse O2 O2 Flow FiO2 Ox Delivery Rate 07/24 0935 98.2 74 18 138/84 99 07/24 0825 98.2 74 18 174/110 99 - WBC >12,000 or <4,000 or 10% bands? 2 or more SIRS Criteria Met? B/P:174/110 MAP:131 Creatinine >2.0? UA output<0.5ml/kg/hr for 2 hrs? Platelet count >100,000? Lactate >2.0mmol/1? INR >1.2 or PTT > than 60 sec? Evidence of Organ Dysfunction? Provider documented clinical suspician of infection? N Sepsis Criteria Count: 0 Sepsis Risk: Low Sepsis Risk General Appearance normal appearance, WD/WN Eye Exam - bilateral eye PERRL, bilateral eye EOMI (bilateral lid edema) Ear, Nose, Throat hearing grossly normal, normal ENT inspection Neck normal inspection, non-tender, supple, full range of motion Respiratory Status Yes: trachea midline, chest symmetrical, non tender chest. No: respiratory distress. Lung Sounds bilateral: normal breath sounds, lungs clear. Cardiovascular normal exam, regular rate/rhythm, no peripheral edema, no gallop, no JVD, no murmur, no rub, normal peripheral pulses Peripheral Pulses Pulses normal Yes Gastrointestinal normal bowel sounds, soft, no pulsatile mass, distended, no guarding, no rebound, soft abdomen with mild upper abdominal tenderness, 4 days uterus fundal height is at the umbilical level. firm in consistency. Back normal inspection, no CVA tenderness, no vertebral tenderness Extremities non-tender, normal range of motion, swelling, 2+ leg edema and normal cap refill Pelvic normal external exam, no cerv. motion tender, Vulva and vagina within normal limits. The cervix is short and closed. Uterus is enlarged matches the age, firm in consistency. No adenxal tenderness or masses. 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 No Results/Orders Laboratory Tests 07/24/17 0830: Magnesium 2.4 H 07/24/17 0830: Sodium 139, Potassium 4.3, Chloride 107, Carbon Dioxide 26, BUN 23 H, Creatinine 1.4 H, Estimated Creat Clear 73, Estimated GFR (MDRD) 45 L, Glucose 91, Calcium 8.7, Total Bilirubin 0.2, AST 21, ALT 22, Alkaline Phosphatase 86, Total Protein 6.3 L, Albumin 2.3 L, Globulin 4.0 H, Albumin/Globulin Ratio 0.6 L, APTT 26.9, WBC 13.8 H, RBC 3.28 L, Hgb 10.4 L, Hct 30.9 L, MCV 94.2, RDW 12.2, Plt Count 371, MPV 7.6, Gran % 80.4 H, Gran # 11.1 H, Lymphocytes % 12.7, Monocytes % 4.5, Eosinophils % 2.1, Basophils % 0.2, Lymphocytes # 1.8, Monocytes # 0.6, Eosinophils # 0.3, Basophils # 0.0, PUBS MCHC 33.7, MCH 31.7 H , Opiates Screen NEGATIVE, Urine Methadone Screen NEGATIVE, Barbiturates NEGATIVE, Phencyclidine Screen NEGATIVE, Amphetamines Screen NEGATIVE, Benzodiazepines Screen NEGATIVE, Cocaine Screen NEGATIVE, Marijuana (THC) Screen NEGATIVE, Urine Color STRAW, Urine Appearance CLEAR, Urine pH 6.5, Ur Specific [place] 1.010, Urine Protein 2+ H, Urine Ketones NEGATIVE, Urine Blood 2+ H, Urine Nitrate NEGATIVE, Urine Bilirubin NEGATIVE, Urine Urobilinogen 0.2, Ur Leukocyte Esterase NEGATIVE, Urine RBC 3-5, Urine WBC 10-20, Ur Squamous Epith Cells 3-5, Urine Bacteria 3+, Urine Glucose NEGATIVE Current Medication Orders Sig/Magalie Start time Last Medication Dose Route Stop Time Status Admin Mineral Oil 133 ML ONCE ONE 07/24 0900 DC CO 07/24 09 Sodium Chloride 10 ML PRN PRN 07/24 0830 AC IV 07/25 0829 Orders Procedure Date/time Status DIET-NOTHING BY MOUTH 07/[address] HEAD W/O CONTRAST 07/[address] HEAD REQ 07/24 0855 Complete ABD ACUTE(MUL VIEWS) 07/24 0855 Active URINALYSIS/COMPLETE 07/24 0843 Complete MAGNESIUM 07/24 0843 Complete DRUG ABUSE SCREEN (10) 07/24 0843 Complete CULTURE, URINE 07/24 0830 Active IV SALINE LOCK 07/24 08 Active PARTIAL THROMBOPLASTIN TIME 07/24 08 Complete CBC WITH AUTO DIFF 07/24 08 Complete CHEM 12 PROFILE 07/24 0829 Complete Departure Departure Time of Disposition 0937 Disposition Still a Patient Clinical Impression Primary Impression: hypertension Secondary Impressions: Renal insufficiency Condition STABLE Referrals Renan BUI,Nicola Barrett Additional Instructions I discussed with Dr. De Jesus her history and exam findings, and lab findings. He will admitted the patient was started on IV magnesium therapy. Patient was admitted in stable condition. Discharge Counseling Counseled pt/family regarding diagnosis, test results, medications/RX ED Critical Care Critical Care No If Critical Care minutes are documented, the time involved in the performance of seperately reportable procedures was not counted toward critical care time documented. I directly delivered medical care to this critically ill and/or injured patient. Timely evaluation and treatment was necessary to address the significant organ system(s) dysfunction present in this patient. at 0941
[2017-07-24 08:58] LABS: URINE BILIRUBIN - DIPSTICK NEGATIVE (NEG); URINE BLOOD 2+ (NEG)
[2017-07-24 09:06] LABS: AMPHETAMINES/METAMPHETAMINES NEGATIVE ng/mL (<1000)
--- NOTE | 2017-07-24 11:01 | RADIOLOGY REPORT PS360 ---
CT HEAD W/O CONTRAST HISTORY: 4 DAYS POST- VOMITING ORDERING PHYSICIAN: Nicola Urrutia MD PATIENT AGE: 26 years COMPARISON: None TECHNIQUE: Axial images obtained without contrast. Brain and bone windows reviewed. FINDINGS: No midline shift, mass effect, intracranial hemorrhage, hydrocephalus, or extra-axial fluid collection is evident. The calvarium has an unremarkable appearance. Small amount fluid in right mastoid sinus.. The visualized paranasal sinuses are unremarkable. IMPRESSION: 1. No acute intracranial findings. 2. Right mastoid sinus
--- NOTE | 2017-07-24 11:03 | RADIOLOGY REPORT PS360 ---
ABD ACUTE(MUL VIEWS) HISTORY: vomiting ORDERING PHYSICIAN: Simone Herring MD PATIENT AGE: 26 years COMPARISON: None FINDINGS: Frontal view of the chest shows no acute finding. Is a mild amount colonic feces. No intestinal obstruction. Air is evident. The bladder. No obvious renal or ureteral calculi or bony anomalies. IMPRESSION: Mild constipation
[2017-07-25] VITALS (21 sets, daily range): BP systolic 116–186; BP diastolic 56–87
--- NOTE | 2017-07-25 08:35 | ACUTE CARE PROGRESS NOTE (QUA) ---
Progress Notes Subjective Date 07/25/17 Time 0834 Note She is doing better this morning. Her blood pressures have stabilized. She is on magnesium sulfate at 2 g an hour. She does feel very lethargic well on the magnesium sulfate and her magnesium levels were elevated. As result of that we are going to stop her magnesium sulfate this morning she's been on magnesium for almost 22 hours. Patient/family reports: feeling better Objective Findings Last VS-Temp:97.9 B/P:149/80 Pulse:75 Resp:16 SaO2:95 ROOM AIR Last weight lbs:172 oz:2 K.075 Method:Floor Scales Laboratory Tests 07/25/17 0615: Magnesium 10.2 *H Exam General appearance: normal appearance, alert, awake, no acute distress Reviewed: vital signs, lab results Assessment/Plan Problem List 1. hypertension Patient condition Improving, Stable Plan: continue current care, make medication changes This inpt stay is expected to cross 2 MNs from start of care Yes Comments: Her blood pressure is improved this morning. We will go ahead and start labetalol 200 mg by mouth twice a day. We will discontinue her magnesium sulfate. We'll plan to send her home tomorrow. at 0835
[2017-07-26 04:40] VITALS: BP 150/87
[2017-07-26 07:25] VITALS: BP 150/88
--- NOTE | 2017-07-26 07:45 | ACUTE CARE PROGRESS NOTE (QUA) ---
Progress Notes Subjective Date 07/26/17 Time 0744 Note She seems to be doing better this morning. Her blood pressure is doing much better. She denies any headache, scotomata or epigastric pain. Patient/family reports: feeling better, no complaints Objective Findings Last VS-Temp:98.1 B/P:150/87 Pulse:69 Resp:18 SaO2:97 ROOM AIR Last weight lbs:172 oz:2 K.075 Method:Floor Scales Exam General appearance: normal appearance, alert, awake, no acute distress Reviewed: vital signs, lab results Assessment/Plan Problem List 1. hypertension Patient condition Improving, Stable Plan: continue current care, initiate discharge plan This inpt stay is expected to cross 2 MNs from start of care Yes Comments: She is doing well this morning. We'll plan to send her home today. at 0744
--- NOTE | 2017-07-26 07:47 | Discharge Summary ---
Discharge Summary Admission date: 07/24/17 Discharge date: 07/26/17 Discharge diagnoses: -induced hypertension. Clinical note: She is a 26-year-old 3 para 3 who is a few days and came into the ER with a headache and bleeding. Her blood pressure was 170/110. As result of that we elected to admit her for control of her blood pressure. Her bleeding had settled by the time she arrived in the ER. Course in hospital: She was started on IV magnesium sulfate and did well with this. Her blood pressure stabilized. She was given labetalol 200 mg twice a day and her blood pressures decreased with this. She mostly normal labs but her uric acid was 9.5. She has done well while hospitalized and she is feeling much better. Plans for ongoing care: We will send her home today to follow-up with me in approximately a weeks' time. Discharge medications She'll continue with her vitamins and iron. She was given a pressure for for labetalol 200 mg twice a day DC/follow-up instructions She was given the usual instructions with respect to limiting her activity, driving and sexual activity. Condition at discharge Stable and improved at 7700
[2017-07-26] MEDS ORDERED: LABETALOL HCL200 MG PO (07:48)
[2017-07-26 08:32] VITALS: BP 150/88
== END 2017-07-26 08:32 | disposition home or self-care (01) | DRG 776 ==
LOC: ER 08:16 → OB 09:40 → ER 09:40 → OB 10:59
PROVIDERS: Emergency Medicine
DX: O16.5 Unspecified maternal hypertension, complicating the puerperium (principal)
CPT/HCPCS: G0378; J2405